=== PATIENT | male | born 1985 | race Caucasian/White ===

== ENCOUNTER 2022-09-04 11:18 | Emergency (ER) | payer BC ==
[2022-09-04] MEDS ORDERED: Acetaminophen 500 MG TAB ONE (11:50)
[2022-09-04 12:42] LABS: SARS-CoV-2 NAA Rapid Test Not Detected (NotDetected)
== END 2022-09-04 12:56 | disposition home or self-care (01) ==
LOC: CSHERS 11:18
DX: J02.9 Acute pharyngitis, unspecified (principal); Z20.822 Contact with and (suspected) exposure to COVID-19; F17.210 Nicotine dependence, cigarettes, uncomplicated
CPT/HCPCS: 87081; 87430; 99283

== ENCOUNTER 2025-05-20 07:30 | Emergency (ER) | payer SELFPAY ==
[2025-05-20] MEDS ORDERED: Proparacaine 0.5% Opth 15 ML BOT ONE (07:50)
[2025-05-20] MEDS ORDERED: Fluorescein Opthalmic Strip ONE (07:50)
[2025-05-20] MEDS ORDERED: Lidocaine 1% w/Epinephrine 1:200K 30 ML VIAL ONE (08:23)
[2025-05-20] MEDS ORDERED: Ibuprofen 200 MG TAB ONE (08:28)
[2025-05-20] MEDS ORDERED: Acetaminophen 500 MG TAB ONE (08:28)
== END 2025-05-20 09:30 | disposition home or self-care (01) ==
LOC: CSHERS 07:30
DX: T15.01XA Foreign body in cornea, right eye, initial encounter (principal); L05.02 Pilonidal sinus with abscess; F17.210 Nicotine dependence, cigarettes, uncomplicated; Z55.6 Problems related to health literacy
CPT/HCPCS: 10080; 65222